=== PATIENT | female | born 1975 | race African-American/Black ===

== ENCOUNTER 2020-06-26 08:33 | Day surgery (SDC) | payer OTHER ==
[~2020-06-26] VITALS: Ht 149.9 cm; Wt 121.8 kg
[~2020-06-26 08:33] MED LIST: SODIUM CHLORIDE 0.9% 1,000 ML IV ONE; SODIUM CHLORIDE 0.9% 1,000 ML ONE
== END 2020-06-26 11:30 | disposition home or self-care (01) ==
LOC: SURGERY 08:33
PROVIDERS: ATTEND Student in an Organized Health Care Education/Training Program
DX: K29.50 Unspecified chronic gastritis without bleeding (principal); K20.9 Esophagitis, unspecified; K31.89 Other diseases of stomach and duodenum; K31.7 Polyp of stomach and duodenum; Z11.59 Encounter for screening for other viral diseases; Z90.710 Acquired absence of both cervix and uterus; Z98.890 Other specified postprocedural states
CPT/HCPCS: 43239; 87635; 88305; 88312; 88313; C1769; J7030

== ENCOUNTER 2020-09-11 10:36 | Day surgery (SDC) | payer OTHER ==
[2020-09-10 10:38] LABS: COVID AG,FIA SOURCE NASOPHARYNGEAL
[~2020-09-11] VITALS: Ht 149.9 cm; Wt 120.9 kg
[~2020-09-11 10:36] MED LIST changes: +OMEP20 PO; -SODIUM CHLORIDE 0.9% 1,000 ML ONE
[2020-09-11] MEDS ORDERED: PROPOFOL 1% 20 ML VIAL IVP ONE (12:00)
== END 2020-09-11 14:20 | disposition home or self-care (01) ==
LOC: SURGERY 10:36
PROVIDERS: ATTEND Student in an Organized Health Care Education/Training Program
DX: K31.89 Other diseases of stomach and duodenum (principal); K44.9 Diaphragmatic hernia without obstruction or gangrene; E66.01 Morbid (severe) obesity due to excess calories; Z90.710 Acquired absence of both cervix and uterus; K29.50 Unspecified chronic gastritis without bleeding; Z98.890 Other specified postprocedural states; F12.90 Cannabis use, unspecified, uncomplicated; Z68.43 Body mass index [BMI] 50.0-59.9, adult; Z20.828 Contact with and (suspected) exposure to other viral communicable diseases
CPT/HCPCS: 43239; 87426; 88305; 88312; 88313; C1769; C9803; J2704